=== PATIENT | female | born 1985 | race Caucasian/White ===

== ENCOUNTER → 2017-02-22 | Outpatient (REF) | payer OTHER ==
[~2017-02-22] MED LIST: CLAR5SYP2 PO; GLIP5TAB8 PO; IBUP-1114 PO; LABE20TAB PO; NORCOTAB PO; PRENTAB9 PO
[2017-02-22 12:03] LABS: MEAN CORPUSCULAR HGB CONC 32.7 g/dl (32.0-36.5); MEAN CORPUSCULAR VOLUME 85.8 fl (80.0-96.0); RED CELL DISTRIBUTION WIDTH 14.5 % (11.5-14.5); WHITE BLOOD COUNT 4.1 K/mm3 (4.0-10.0)
[2017-02-22 12:14] LABS: ALBUMIN 3.6 GM/DL (3.2-5.2); ALBUMIN/GLOBULIN RATIO 0.97 (1.00-1.93); ALKALINE PHOSPHATASE 66 U/L (45-117); ALT/SGPT 27 U/L (12-78); ANION GAP 6 MEQ/L (8-16); AST/SGOT 20 U/L (15-37); BILIRUBIN,TOTAL 0.5 MG/DL (0.2-1.0); BLOOD UREA NITROGEN 9 MG/DL (7-18); CALCIUM LEVEL 8.5 MG/DL (8.5-10.1); CARBON DIOXIDE LEVEL 30 MEQ/L (21-32); CHLORIDE LEVEL 106 MEQ/L (98-107); CHOLESTEROL LEVEL 296 MG/DL (<200); CREATININE FOR GFR 0.69 MG/DL (0.55-1.02); FREE T4 0.98 NG/DL (0.76-1.46); GLOMERULAR FILTRATION RATE > 60.0 (>60); GLUCOSE, FASTING 91 MG/DL (70-105); POTASSIUM SERUM 4.1 MEQ/L (3.5-5.1); SODIUM LEVEL 142 MEQ/L (136-145); TOTAL PROTEIN 7.3 GM/DL (6.4-8.2); TRIGLYCERIDES LEVEL 186 MG/DL (<150)
[2017-02-24 00:07] LABS: TISSUE TRANSGLUTAMINASE IgG <2 U/mL (0-5)
== END ==
LOC: M SFHCPLAZ 09:43
PROVIDERS: ATTEND Internal Medicine
DX: K90.0 Celiac disease (principal); E78.00 Pure hypercholesterolemia, unspecified; R63.5 Abnormal weight gain; E28.2 Polycystic ovarian syndrome

== ENCOUNTER → 2018-06-14 | Outpatient (REF) | payer OTHER | LOC: M LAB REF 19:22 | DX: R30.0 Dysuria (principal) ==

== ENCOUNTER → 2019-06-26 | Outpatient (REF) | payer OTHER ==
[~2019-06-26] MED LIST changes: -CLAR5SYP2 PO; +CLAR5SYP5 PO; +HYDR-3715 PO; -NORCOTAB PO
== END ==
LOC: M LAB REF 18:48
PROVIDERS: ATTEND Physician Assistant Medical
DX: J02.9 Acute pharyngitis, unspecified (principal)

== ENCOUNTER → 2019-11-22 | Outpatient (REF) | payer OTHER ==
[~2019-11-22] MED LIST changes: +PROG1CAP9 PV
[2019-11-22 13:15] LABS: HEMATOCRIT 39.5 % (36.0-47.0); HEMOGLOBIN 13.2 g/dl (12.0-15.5); MEAN CORPUSCULAR HEMOGLOBIN 29.2 pg (27.0-33.0); MEAN CORPUSCULAR HGB CONC 33.4 g/dl (32.0-36.5); MEAN CORPUSCULAR VOLUME 87.4 fl (80.0-96.0); PLATELET COUNT, AUTOMATED 292 10^3/uL (150-450); RED BLOOD COUNT 4.52 10^6/uL (4.00-5.40); WHITE BLOOD COUNT 5.7 10^3/uL (4.0-10.0)
[2019-11-22 14:09] LABS: HEPATITIS C VIRUS ABY INDEX < 0.0 INDEX (<0.8); HIV 1&2 SCREEN CENTAUR NEGATIVE (NEGATIVE); RUBELLA IgG QUALITATIVE IMMUNE (IMMUNE)
== END ==
LOC: M LAB REF 12:43
PROVIDERS: ATTEND Obstetrics & Gynecology
DX: O36.80X0 Pregnancy with inconclusive fetal viability, not applicable or unspecified (principal); Z3A.00 Weeks of gestation of pregnancy not specified

== ENCOUNTER → 2019-11-28 | Outpatient (CLI) | payer OTHER ==
--- NOTE | 2019-11-29 02:31 | REP ---
Clinical: Dating and viability. Technique: Transabdominal first trimester obstetrical ultrasound with color Doppler evaluation. Findings: Ultrasound examination demonstrates a single live early intrauterine . Gestational sac with yolk sac and pole identified. CRL of 3 mm corresponds to 5 weeks 6 days gestational age with estimated date of delivery 07/24/2020. heart rate equals 101 beats per minute. Impression: Early intrauterine at 5 weeks 6 days gestational age. Complete anatomical assessment should be performed at 19-20 weeks. Electronically Signed by Feng Todd MD 11/29/2019 02:23 A
== END ==
LOC: M RAD 12:00
PROVIDERS: ATTEND Obstetrics & Gynecology
DX: Z32.01 Encounter for pregnancy test, result positive (principal); Z3A.01 Less than 8 weeks gestation of pregnancy

== ENCOUNTER → 2019-12-29 | Outpatient (REF) | payer OTHER ==
[2019-12-29 14:51] LABS: URINE TOTAL PROTEIN 12.2 MG/DL (0-12)
[2019-12-29 14:57] LABS: CREATININE 24 HOUR, URINE 1007.5 MG/24HR (600-1800); TOTAL PROTEIN 24 HOUR URINE 79.3 MG/24HR (50-150)
== END ==
LOC: M LAB 14:21 → M LAB REF 14:21
PROVIDERS: ATTEND Obstetrics & Gynecology
DX: Z34.02 Encounter for supervision of normal first pregnancy, second trimester (principal)

== ENCOUNTER → 2020-03-11 | Outpatient (CLI) | payer OTHER ==
--- NOTE | 2020-03-12 03:04 | REP ---
Clinical: Anatomical evaluation. Comparison: 11/28/2019 . Findings: Examination demonstrates a single live intrauterine in cephalic presentation. motion is identified by technologist. Placenta is noted posterior and grade I without evidence for placenta previa or abruption. Amniotic fluid volume is normal. Cervix measures 4.7 cm in length and appears closed. No evidence for nuchal cord. Gestational age by LMP 21 weeks 4 days with LIZET 07/18/2020 . Gestational age by current measurements 20 weeks 5 days with LIZET 07/24/2020 . FHR equals 150 beats per minute. BPD 4.9 cm 20 weeks 5 days HC 18.0 cm 20 weeks 3 days AC 15.8 cm 21 weeks 0 days FL 3.4 cm 20 weeks 6 days HL 3.3 cm 21 weeks 0 days HC/AC ratio 1.13 Estimated weight 380 grams ( 22nd percentile). Anatomical assessment demonstrates normal structures including cranium, choroid plexus, cerebellum/posterior fossa, lungs, diaphragm, stomach, cord insertion, kidneys/bladder, and lower extremities. Limited evaluation of the facial features, heart/ventricular outflow tracts, three-vessel cord, spine, and upper extremities noted. Impression: Single live intrauterine in cephalic presentation demonstrating appropriate interval growth. Anatomical limitations as noted above. Reevaluation and follow-up may be warranted. Electronically Signed by Feng Todd MD 03/12/2020 02:55 A
== END ==
LOC: M RAD 13:49
PROVIDERS: ATTEND Obstetrics & Gynecology
DX: Z36.89 Encounter for other specified antenatal screening (principal); Z3A.20 20 weeks gestation of pregnancy

== ENCOUNTER → 2020-05-07 | Outpatient (REF) | payer OTHER ==
[~2020-05-07] MED LIST changes: +CETI-36 PO; +GLYB25TA PO; +HUMU1INJ SC; +INSUHUMDS SC; +LABE200T32 PO; +LASI20TA3 PO; +NIFE1TAB52 PO; +PERCOCET PO
[2020-05-07 12:32] LABS: HEMATOCRIT 35.4 % (36.0-47.0); HEMOGLOBIN 11.8 g/dl (12.0-15.5); MEAN CORPUSCULAR HEMOGLOBIN 29.4 pg (27.0-33.0); MEAN CORPUSCULAR HGB CONC 33.3 g/dl (32.0-36.5); MEAN CORPUSCULAR VOLUME 88.3 fl (80.0-96.0); PLATELET COUNT, AUTOMATED 210 10^3/uL (150-450); RED BLOOD COUNT 4.01 10^6/uL (4.00-5.40)
[2020-05-07 17:06] LABS: HEMOGLOBIN A1c 5.7 %
== END ==
LOC: M LAB REF 11:15
PROVIDERS: ATTEND Advanced Practice Midwife
DX: Z34.82 Encounter for supervision of other normal pregnancy, second trimester (principal)

== ENCOUNTER → 2020-07-09 | Outpatient (CLI) | payer OTHER | LOC: M LABSMTC 09:57 | PROVIDERS: ATTEND Anesthesiology | DX: Z01.812 Encounter for preprocedural laboratory examination (principal); Z20.828 Contact with and (suspected) exposure to other viral communicable diseases | CPT/HCPCS: C9803; U0003 ==

== ENCOUNTER 2020-07-14 05:13 | Inpatient (IN) | payer OTHER ==
[2020-07-14] VITALS (20 sets, daily range): BP systolic 142–180; BP diastolic 74–106
[~2020-07-14] VITALS: Ht 162.6 cm; Wt 128.0 kg
[~2020-07-14 05:13] MED LIST changes: -GLYB25TA PO; -LABE200T32 PO; -LASI20TA3 PO; -NIFE1TAB52 PO; -PERCOCET PO
[2020-07-14] MEDS ORDERED: LR 1,000 ML IV SCH ×2 (05:30→09:30)
[2020-07-14] MEDS ORDERED: LR 1,000 ML IV ONE (05:30)
[2020-07-14] MEDS ORDERED: BICITRA 30ML SOLN UDC PO ONE (06:00)
[2020-07-14] MEDS ORDERED: ceFAZolin SOD 2 GM in IV 1 EA IV ONE (06:00)
[2020-07-14] MEDS ORDERED: ceFAZolin 2 GM/D5W 50 ML IV BAG (J0690 PER 500MG) As Ordered ONE (06:08)
[2020-07-14 06:24] LABS: HEMATOCRIT 32.1 % (36.0-47.0); HEMOGLOBIN 10.5 g/dl (12.0-15.5); MEAN CORPUSCULAR HEMOGLOBIN 27.8 pg (27.0-33.0); MEAN CORPUSCULAR HGB CONC 32.7 g/dl (32.0-36.5); MEAN CORPUSCULAR VOLUME 84.9 fl (80.0-96.0); PLATELET COUNT, AUTOMATED 170 10^3/uL (150-450); RED BLOOD COUNT 3.78 10^6/uL (4.00-5.40)
[2020-07-14 06:47] LABS: ALT/SGPT 19 U/L (12-78); BILIRUBIN,TOTAL 0.2 MG/DL (0.2-1.0); CREATININE FOR GFR 0.62 MG/DL (0.55-1.30); GLOMERULAR FILTRATION RATE > 60.0 (>60); LDH LACTATE DEHYDROGENASE 233 U/L (84-246); URIC ACID 4.3 MG/DL (2.6-6.0)
[2020-07-14] MEDS ORDERED: NS 1,000 ML IV SCH (07:00)
[2020-07-14 07:02] LABS: ALBUMIN 2.6 GM/DL (3.2-5.2); BLOOD UREA NITROGEN 7 MG/DL (7-18); CALCIUM LEVEL 8.3 MG/DL (8.5-10.1); CARBON DIOXIDE LEVEL 23 MEQ/L (21-32); CHLORIDE LEVEL 110 MEQ/L (98-107); GLUCOSE, FASTING 92 MG/DL (70-100); SODIUM LEVEL 141 MEQ/L (136-145); TOTAL PROTEIN 6.1 GM/DL (6.4-8.2)
[2020-07-14] MEDS ORDERED: OXYTOCIN DRIP 30 UNITS in IV 1 EA IV SCH (07:37)
[2020-07-14] MEDS ORDERED: RHOGAM 300 MCG (1500 IU) INJ (J2790) IM SCH (07:45)
[2020-07-14] MEDS ORDERED: ONDANSETRON 4 MG ORAL DISINTEGRATING TAB PO PRN (07:45)
[2020-07-14] MEDS ORDERED: MEASLES,MUMPS,RUBELLA VACCINE INJ (MMR-II) (90707) SC SCH (07:45)
[2020-07-14] MEDS ORDERED: PERCOCET 5MG/325MG TAB PO PRN ×2 (07:45→09:30)
[2020-07-14] MEDS ORDERED: MOM 30ML SUSPENSION UDC PO PRN (07:45)
[2020-07-14] MEDS ORDERED: NALBUPHINE HCL 10 MG/ML AMP (J2300) IV PRN ×2 (07:47→09:30)
[2020-07-14] MEDS ORDERED: NALOXONE INJ 0.4MG/1ML VIAL (J2310 PER 1MG) IV PRN ×2 (07:47)
[2020-07-14] MEDS ORDERED: diphenhydrAMINE 50MG/ML VIAL (J1200) IV PRN (07:47)
[2020-07-14] MEDS ORDERED: ONDANSETRON 4MG/2ML VIAL IV PRN ×2 (07:47→09:30)
[2020-07-14] MEDS ORDERED: METOCLOPRAMIDE INJ 10MG/2ML VIAL (J2765 PER 1) IV PRN ×2 (07:47→09:30)
[2020-07-14] MEDS ORDERED: MORPHINE PRES-FREE INJ 10 MG/10 ML VIAL (J2274) As Ordered ONE (07:56)
[2020-07-14] MEDS ORDERED: OXYTOCIN INJ 10 UNITS/ML VIAL (J2590) As Ordered ONE (07:56)
[2020-07-14 08:23] LABS: CORD GAS ABE A -1.4; CORD GAS O2 SAT A 52.4 %; CORD GAS PCO2 A 60.6 mmHg; CORD GAS PH A 7.267 UNITS; CORD GAS PO2 A 23.3 mmHg; CORD GAS SBC A 22.1 MEQ/L; CORD GAS TCO2 A 28.9 MEQ/L
[2020-07-14 08:24] LABS: CORD GAS ABE V -1.4; CORD GAS HCO3 V 24.5 MEQ/L; CORD GAS O2 SAT V 82.3 %; CORD GAS PCO2 V 45.4 mmHg; CORD GAS PH V 7.35 UNITS; CORD GAS PO2 V 38.1 mmHg; CORD GAS SBC V 22.9 MEQ/L; CORD GAS TCO2 V 25.9 MEQ/L
[2020-07-14] MEDS ORDERED: IBUPROFEN 800 MG TAB PO SCH (09:00)
[2020-07-14] MEDS: PRENATAL VITAMINS CHEWABLE TABLET PO SCH (09:00)
[2020-07-14] MEDS ORDERED: MEPERIDINE INJ 25 MG/ML VIAL (J2175) IV PRN (09:30)
[2020-07-14] MEDS ORDERED: diphenhydrAMINE 50MG/ML VIAL (J1200) IV ONE (09:30)
[2020-07-14] MEDS ORDERED: fentaNYL 100 MCG/2 ML INJECTION (J3010) IV PRN (09:30)
[2020-07-14] MEDS ORDERED: KETOROLAC 30 MG/ML 1ML VIAL IV PRN (09:30)
[2020-07-14] MEDS ORDERED: diphenhydrAMINE 50MG/ML VIAL (J1200) As Ordered ONE (09:33)
[2020-07-14] MEDS ORDERED: fentaNYL 100 MCG/2 ML INJECTION (J3010) As Ordered ONE (09:39)
[2020-07-14] MEDS ORDERED: OXYTOCIN 30 UNITS IN 0.9% NaCl 500ML IV BAG (J2590) As Ordered ONE (09:47)
[2020-07-14] MEDS ORDERED: KETOROLAC 30 MG/ML 1ML VIAL As Ordered ONE (10:17)
[2020-07-14] MEDS: LABETALOL 200 MG TAB PO SCH ×2 (12:17→20:42)
[2020-07-14] MEDS: DOCUSATE SODIUM 100 MG CAP PO SCH ×2 (12:17→20:42)
[2020-07-14 14:43] LABS: HEMATOCRIT 30.5 % (36.0-47.0); HEMOGLOBIN 9.8 g/dl (12.0-15.5); MEAN CORPUSCULAR HEMOGLOBIN 27.3 pg (27.0-33.0); MEAN CORPUSCULAR HGB CONC 32.1 g/dl (32.0-36.5); PLATELET COUNT, AUTOMATED 164 10^3/uL (150-450); RED BLOOD COUNT 3.59 10^6/uL (4.00-5.40); WHITE BLOOD COUNT 7.8 10^3/uL (4.0-10.0)
[2020-07-14 15:09] LABS: ALT/SGPT 17 U/L (12-78); BILIRUBIN,TOTAL 0.2 MG/DL (0.2-1.0); CREATININE FOR GFR 0.53 MG/DL (0.55-1.30); GLOMERULAR FILTRATION RATE > 60.0 (>60); LDH LACTATE DEHYDROGENASE 256 U/L (84-246); URIC ACID 4.4 MG/DL (2.6-6.0)
[2020-07-14] MEDS: IBUPROFEN 800 MG TAB PO SCH (17:55)
[2020-07-15] VITALS (10 sets, daily range): BP systolic 118–159; BP diastolic 62–79
[2020-07-15] MEDS: IBUPROFEN 800 MG TAB PO SCH ×3 (02:13→17:56)
[2020-07-15 06:31] LABS: HEMATOCRIT 25.4 % (36.0-47.0); HEMOGLOBIN 8.3 g/dl (12.0-15.5); MEAN CORPUSCULAR HEMOGLOBIN 27.8 pg (27.0-33.0); MEAN CORPUSCULAR HGB CONC 32.7 g/dl (32.0-36.5); MEAN CORPUSCULAR VOLUME 84.9 fl (80.0-96.0); PLATELET COUNT, AUTOMATED 155 10^3/uL (150-450); RED BLOOD COUNT 2.99 10^6/uL (4.00-5.40); WHITE BLOOD COUNT 5.5 10^3/uL (4.0-10.0)
[2020-07-15 07:00] LABS: ALT/SGPT 13 U/L (12-78); BILIRUBIN,TOTAL 0.2 MG/DL (0.2-1.0); BLOOD UREA NITROGEN 5 MG/DL (7-18); CALCIUM LEVEL 7.9 MG/DL (8.5-10.1); CARBON DIOXIDE LEVEL 23 MEQ/L (21-32); CHLORIDE LEVEL 106 MEQ/L (98-107); CREATININE FOR GFR 0.61 MG/DL (0.55-1.30); GLOMERULAR FILTRATION RATE > 60.0 (>60); GLUCOSE, FASTING 133 MG/DL (70-100); POTASSIUM SERUM 3.8 MEQ/L (3.5-5.1); SODIUM LEVEL 136 MEQ/L (136-145); TOTAL PROTEIN 5.4 GM/DL (6.4-8.2)
[2020-07-15] MEDS: LABETALOL 200 MG TAB PO SCH ×2 (10:00→20:18)
[2020-07-15] MEDS: DOCUSATE SODIUM 100 MG CAP PO SCH ×2 (10:01→20:17)
[2020-07-15] MEDS: PRENATAL VITAMINS CHEWABLE TABLET PO SCH (10:02)
[2020-07-15] MEDS: PERCOCET 5MG/325MG TAB PO PRN (12:41)
[2020-07-15] MEDS ORDERED: glyBURIDE 2.5 MG TAB PO SCH (17:30)
[2020-07-15] MEDS ORDERED: DEXTROSE 50% 50 ML SYRINGE IV PRN (21:15)
[2020-07-16 02:00] VITALS: BP 131/60
[2020-07-16] MEDS: IBUPROFEN 800 MG TAB PO SCH ×2 (02:01→09:59)
[2020-07-16] MEDS: PERCOCET 5MG/325MG TAB PO PRN (05:51)
[2020-07-16 06:00] VITALS: BP 135/72
[2020-07-16] MEDS ORDERED: glyBURIDE 2.5 MG TAB PO SCH ×2 (07:30)
[2020-07-16] MEDS ORDERED: GLYB25TA PO (08:30)
[2020-07-16] MEDS ORDERED: LABE20TAB PO (08:30)
[2020-07-16] MEDS ORDERED: PERCOCET PO (08:30)
--- NOTE | 2020-07-16 08:39 | OBDS ---
[facility] Obstetrical Discharge Sum. Obstetrical Discharge Summary Processor Inspector/Provider: Ben Jackson DO Date: Jul 16, 2020 : 2 Term: 2 Pre-term: 0 Abortions: 0 Livin VDRL: Non-Reactive Rh: Positive Rubella: Immune Sex: Female Infant Weight: pounds (8), ounces (13) Anesthesia: Regional Anesthesia A/P, Post Course List any complications Admission diagnosis: Term for elective repeat c/s; Type II diabetes on insulin; Obesity. Discharge diagnosis: Same; Preeclampsia/elevated BP Condition at Discharge: [Stable] Discharge Instructions: [Pt is to follow up with her PCP Dr. Olivarez for BP and diabetic control Activity: [As tolerated] Diet: [Regular] Medications: [See list] Follow-up: [[address] Olivarez or sooner if possible; Follow up in my office in one week.] Other: [Patient to call for sooner appt if needed. ] Ben Jackson DO Jul 16, 2020 08:39
[2020-07-16] MEDS: PRENATAL VITAMINS CHEWABLE TABLET PO SCH (09:59)
[2020-07-16] MEDS: DOCUSATE SODIUM 100 MG CAP PO SCH (09:59)
[2020-07-16 10:00] VITALS: BP 141/82
[2020-07-16] MEDS: LABETALOL 200 MG TAB PO SCH (10:00)
--- NOTE | 2020-07-27 13:51 | RO ---
DATE OF OPERATION: 07/14/2020 Romana is a 34-year-old female, 2 para 1-0-0-1 with a prior history of section and type 2 gestational diabetes on insulin. After extensive counseling, decision was made to proceed with a repeat section. PREOPERATIVE DIAGNOSES: * Term for elective repeat section. * Type 2 diabetes on insulin. POSTOPERATIVE DIAGNOSES: * Term for elective repeat section. * Type 2 diabetes on insulin. * Omental adhesions. PROCEDURES: * Repeat section. * Revision of old scar. * Extensive lysis of adhesions. ANESTHESIA: Spinal. SURGEON: Ben Jackson DO MOUNTER: Gerard Gan DO COMPLICATIONS: None. ESTIMATED BLOOD LOSS: 700 mL. FINDINGS: Live female in occiput transverse position; Apgars 9/9; weight 8 pounds 13 ounces. Dense omental adhesions. Normal tubes and ovaries. PROCEDURE: After obtaining informed consent, the patient was taken to the operating room where a spinal anesthetic was found to be adequate. She was then draped and prepped in the usual sterile fashion in the supine position. At this point, an elliptical incision was made over her old scar. The old scar was removed. The incision was carried down to the fascia. Fascia was incised in midline fashion. With the help of Dr. Gan, the incision was carried through laterally. The peritoneum identified. Peritoneal cavity entered bluntly. At this point, a series of sharp and blunt dissection was done to free up the omental adhesions. A Mobius skin retractor was placed. A low transverse uterine incision was then made. Infant was delivered in an atraumatic fashion using mild bulb suction. Cord doubly clamped and cut, and the was handed over to the waiting warmer. Cord blood and cord gas was sent. Placenta removed manually. The uterus was cleared of all clot and debris. The uterine incision was then repaired with two separate layers of 0 Vicryl sutures. All superficial bleeders coagulated. Peritoneum closed in a running fashion using 2-0 Vicryl. Fascia closed in two separate segments of 0 Vicryl sutures. The skin was then reapproximated in a subcuticular fashion using 3-0 Vicryl on a Sunny. Steri- Strips placed. Patient tolerated the procedure well. She was then transferred to the recovery room in stable condition. [facility]
== END 2020-07-16 11:05 | disposition home or self-care (01) | DRG 786 ==
LOC: M LDI 05:13 → M OBS 11:08
PROVIDERS: ADMIT Obstetrics & Gynecology; ATTEND Obstetrics & Gynecology
PROC: 10D00Z1 Extraction of Products of Conception, Low, Open Approach (ICD-10-PCS; principal; 2020-07-14 07:30)
DX: O34.211 Maternal care for low transverse scar from previous cesarean delivery (principal); O24.12 Pre-existing type 2 diabetes mellitus, in childbirth; Z37.0 Single live birth; Z3A.39 39 weeks gestation of pregnancy; E66.9 Obesity, unspecified; O99.214 Obesity complicating childbirth; E11.9 Type 2 diabetes mellitus without complications; O14.94 Unspecified pre-eclampsia, complicating childbirth

== ENCOUNTER 2020-07-18 20:37 | Observation (INO) | payer OTHER ==
[~2020-07-18] VITALS: Ht 162.6 cm; Wt 120.0 kg
[~2020-07-18 20:37] MED LIST changes: +GLYB25TA PO; +PERCOCET PO
[2020-07-18] MEDS ORDERED: IBUP-1114 PO (20:53)
[2020-07-18] MEDS ORDERED: LASI20TA3 PO (20:53)
[2020-07-18 21:53] LABS: BASO % 0.4 % (0.0-1.0); EOS # 0.1 10^3/uL (0.0-0.5); EOS % 2.5 % (0.0-3.0); HEMATOCRIT 27.2 % (36.0-47.0); HEMOGLOBIN 8.6 g/dl (12.0-15.5); LYMPH # 1.4 10^3/uL (1.5-5.0); MEAN CORPUSCULAR HEMOGLOBIN 27.4 pg (27.0-33.0); MEAN CORPUSCULAR HGB CONC 31.6 g/dl (32.0-36.5); MEAN CORPUSCULAR VOLUME 86.6 fl (80.0-96.0); MONO # 0.3 10^3/uL (0.0-0.8); MONO % 5.1 % (0.0-5.0); NEUTROPHILS # 3.2 10^3/uL (1.5-8.5); NEUTROPHILS % 63.2 % (36.0-66.0); PLATELET COUNT, AUTOMATED 205 10^3/uL (150-450); RED BLOOD COUNT 3.14 10^6/uL (4.00-5.40); WHITE BLOOD COUNT 5.1 10^3/uL (4.0-10.0)
--- NOTE | 2020-07-18 22:03 | REPVR ---
PROCEDURE INFORMATION: Exam: XR Chest, 2 Views Exam date and time: 07/18/2020 9:54 PM Age: 34 years old Clinical indication: Other: Chest pain, HTN; Additional info: Chest pain, HTN TECHNIQUE: Imaging protocol: XR of the chest Views: 2 views. COMPARISON: No relevant prior studies available. FINDINGS: Lungs: Lungs are diffusely hypoexpanded. No evidence of pulmonary edema. No focal consolidation or parenchymal mass. Pleural space: No pleural effusion. No pneumothorax. Heart/Mediastinum: Heart and mediastinal contours are normal, given the degree of inflation. No adenopathy or hilar mass. Bones/joints: Osseous structures show no concerning abnormality for age. IMPRESSION: Hypoexpanded lungs, without evidence of active cardiopulmonary disease. Electronically signed by: Joni Morris On 07/18/2020 22:03:07 PM
[2020-07-18 22:05] LABS: INR 0.88; PROTHROMBIN TIME 12.1 SECONDS (12.5-14.3)
[2020-07-18 22:06] LABS: PARTIAL THROMBOPLASTIN TIME 27.1 SECONDS (24.2-38.5)
[2020-07-18 22:24] LABS: ALBUMIN 2.7 GM/DL (3.2-5.2); ALT/SGPT 38 U/L (12-78); BILIRUBIN,DIRECT 0.1 MG/DL (0.0-0.2); BILIRUBIN,TOTAL 0.4 MG/DL (0.2-1.0); BLOOD UREA NITROGEN 12 MG/DL (7-18); CARBON DIOXIDE LEVEL 29 MEQ/L (21-32); CHLORIDE LEVEL 105 MEQ/L (98-107); CK-MB VALUE MASS 1.5 NG/ML (<3.6); CPK CREATINE PHOSPHOKINASE 208 U/L (26-192); GLOMERULAR FILTRATION RATE > 60.0 (>60); GLUCOSE, FASTING 87 MG/DL (70-100); MB/CK RELATIVE INDEX 0.72 (< OR =4); POTASSIUM SERUM 3.7 MEQ/L (3.5-5.1); SODIUM LEVEL 139 MEQ/L (136-145); TOTAL PROTEIN 6.3 GM/DL (6.4-8.2); TROPONIN I < 0.02 NG/ML (< 0.10)
[2020-07-18] MEDS ORDERED: LABETALOL 100MG/20ML VIAL IV STA (22:33)
[2020-07-19] VITALS (7 sets, daily range): BP systolic 140–180; BP diastolic 70–104
--- NOTE | 2020-07-19 00:02 | REPVR ---
PROCEDURE INFORMATION: Exam: US Duplex Lower Extremity Veins, Bilateral Exam date and time: 07/18/2020 11:45 PM Age: 34 years old Clinical indication: Swelling (edema) of limb; Lower extremity, bilateral; Additional info: Pain/swelling R/O dvt TECHNIQUE: Imaging protocol: Real-time duplex ultrasound of the extremities with 2-D hurst scale, color Doppler flow and spectral waveform analysis with image documentation. Complete exam focused on the bilateral lower extremity veins. COMPARISON: No relevant prior studies available. FINDINGS: Right deep veins: Common femoral, femoral, proximal profunda femoral and popliteal veins are patent without thrombus. Normal Doppler waveforms. Normal compressibility and/or augmentation response. Right superficial veins: Saphenofemoral junction is patent without thrombus. Left deep veins: Common femoral, femoral, proximal profunda femoral and popliteal veins are patent without thrombus. Normal Doppler waveforms. Normal compressibility and/or augmentation response. Left superficial veins: Saphenofemoral junction is patent without thrombus. Soft tissues: No abnormal focal fluid collection. IMPRESSION: No evidence of deep vein thrombosis. Electronically signed by: Joni Morris On 07/19/2020 00:01:53 AM
[2020-07-19] MEDS ORDERED: LABE200T32 PO (01:06)
[2020-07-19] MEDS ORDERED: GLYB25TA PO (01:06)
[2020-07-19] MEDS ORDERED: NIFEdipine 10 MG CAP PO ONE (03:00)
[2020-07-19] MEDS ORDERED: PERCOCET 5MG/325MG TAB PO PRN (03:45)
[2020-07-19] MEDS: IBUPROFEN 800 MG TAB PO PRN ×2 (03:48→12:54)
[2020-07-19] MEDS ORDERED: glyBURIDE 2.5 MG TAB PO SCH (07:30)
[2020-07-19] MEDS ORDERED: LABETALOL 200 MG TAB PO SCH (09:00)
[2020-07-19] MEDS ORDERED: DOCUSATE SODIUM 100 MG CAP PO SCH (09:00)
[2020-07-19] MEDS ORDERED: FUROSEMIDE 20 MG TAB PO SCH (09:00)
[2020-07-19] MEDS ORDERED: NIFEdipine 30 MG XL TAB PO SCH (09:45)
--- NOTE | 2020-07-19 13:20 | ECGEPIP ---
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
[2020-07-19] MEDS ORDERED: NIFE1TAB52 PO (14:54)
--- NOTE | 2020-07-28 15:22 | HPE ---
DATE OF ADMISSION: 07/19/2020. HISTORY OF PRESENT ILLNESS: A 34-year-old, G3, P2, 0, 1, 2 female, postop day #5 after repeat section, who presents after noting elevated blood pressures at home in the range of 180/115. Patient checks her blood pressure with a home blood pressure cuff. Patient was diagnosed with preeclampsia and started on Labetalol prior to her recent discharge from the hospital. She has some headaches. She denies blurry vision. PAST MEDICAL HISTORY: 1. PCOS. 2. Celiac disease. 3. Obesity. PAST SURGICAL HISTORY: 1. Appendectomy. 2. x2. ALLERGIES: None. 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 She denies cigarettes, alcohol or drug use. FAMILY HISTORY: Noncontributory. MEDICATIONS: 1. Glyburide. 2. Labetalol 200 b.i.d. 3. vitamins. PHYSICAL EXAMINATION: VITALS: Blood pressure 141/88, pulse 102. HEAD AND NECK: Normal. LUNGS: Clear. HEART: Regular rate and rhythm. ABDOMEN: Nontender, soft, incision clean, dry and intact. EXTREMITIES: Nontender with 2+ edema. LABORATORY DATA: Hemoglobin 8.6 grams/dL ASSESSMENT: A 34-year-old, G3, P2, 0, 1, 2, female postop day #5 status post C- section with hypertensive crisis. PLAN: To admit for blood pressure management. Will continue Labetalol, but add a second agent to her regimen. Will keep her in the hospital until blood pressure is reasonable managed. This is a patient of Dr. Jackson at [facility]. [facility]
== END 2020-07-19 16:10 | disposition home or self-care (01) ==
LOC: M ED 20:37 → M ED INP 20:38 → UNDOADMOB 07-19 00:50 → M ED INP 07-19 00:50 → ENRESERV 07-19 00:57 → M PCU 07-19 03:13 → M ED INP 07-19 03:13 → UNDODISOB 07-19 16:10
PROVIDERS: ADMIT Specialist; ATTEND Specialist
DX: O14.95 Unspecified pre-eclampsia, complicating the puerperium (principal); I16.0 Hypertensive urgency; O34.80 Maternal care for other abnormalities of pelvic organs, unspecified trimester; O99.619 Diseases of the digestive system complicating pregnancy, unspecified trimester; O99.210 Obesity complicating pregnancy, unspecified trimester; Z79.84 Long term (current) use of oral hypoglycemic drugs; Z79.899 Other long term (current) drug therapy